=== PATIENT | male | born 1930 | race Caucasian/White ===

== ENCOUNTER 2016-09-28 11:25 | Emergency (ER) | payer MEDICARE, BC ==
[~2016-09-28 11:25] MED LIST: ALLERGY RELIEF10 M1 PO; CHILDREN'S ASPI81 M1 PO; CONSTULOSE10 GM/151 PO; CYCLOBENZAPRINE10 MG PO; DAPSONE 25MG TA25 MG PO; DAPSONE25 M1 PO; DILANTIN 50MG C50 MG PO; DIPHENHYDRAMINE25 MG PO; FINASTERIDE5 MG PO; GOOD NEIGHBOR500 M2 PO; GOOD SENSE ASPI81 M1 PO; HCTZ/LISINOPRIL1 TAB PO; IBUPROFEN400 MG PO; NATURE S BLEND PO; OMEPRAZOLE DR20 MG PO; OMEPRAZOLE20 MG PO; PROSCAR PO; SAW PALMETTO E160 M1 PO; SLO-NIACIN250 MG PO; ZESTRIL 5MG5 MG PO; ZOCOR 10MG10 MG PO; ZOCOR20 M1 PO
[2016-09-28] MEDS ORDERED: NORCO 325 MG-51 TA1 PO (14:20)
[2016-09-28] MEDS ORDERED: VALIUM5 M1 PO (14:20)
[2016-09-28 14:25] VITALS: BP 141/74
[2016-09-28] MEDS ORDERED: ACID REDUCER 1150 MG PO (14:41)
[2016-09-28] MEDS ORDERED: LISINOPRIL10 MG PO (14:47)
[2016-09-28] MEDS ORDERED: FOLIC ACID1 MG PO (14:47)
[2016-09-28] MEDS ORDERED: SEN-O-TABS8.6 MG PO (14:48)
[2016-09-28] MEDS ORDERED: FLOMAX 0.40.4 MG/CAP PO (14:49)
[2016-09-28] MEDS ORDERED: ACETAMINOPHEN1 EACH PO (14:49)
== END 2016-09-28 14:35 | disposition home or self-care (01) ==
LOC: ED 11:25
DX: S20.222A Contusion of left back wall of thorax, initial encounter (principal); S20.221A Contusion of right back wall of thorax, initial encounter; S09.90XA Unspecified injury of head, initial encounter; M62.830 Muscle spasm of back; F41.9 Anxiety disorder, unspecified; W01.198A Fall on same level from slipping, tripping and stumbling with subsequent striking against other object, initial encounter; Z91.81 History of falling; Y92.009 Unspecified place in unspecified non-institutional (private) residence as the place of occurrence of the external cause; I10 Essential (primary) hypertension; E78.5 Hyperlipidemia, unspecified; I69.193 Ataxia following nontraumatic intracerebral hemorrhage; F03.90 Unspecified dementia, unspecified severity, without behavioral disturbance, psychotic disturbance, mood disturbance, and anxiety
CPT/HCPCS: J2405; J3010; Q9967

== ENCOUNTER 2017-05-08 12:53 | Emergency (ER) | payer MEDICARE, BC ==
[~2017-05-08 12:53] MED LIST changes: +ACETAMINOPHEN1 EACH PO; +ACID REDUCER 1150 MG PO; +FLOMAX 0.40.4 MG/CAP PO; +FOLIC ACID1 MG PO; +LISINOPRIL10 MG PO; +NORCO 325 MG-51 TA1 PO; +SEN-O-TABS8.6 MG PO; +VALIUM5 M1 PO
[2017-05-08] MEDS ORDERED: JEVITY PO (13:10)
[2017-05-08 14:32] LABS: URINE APPEARANCE CLOUDY; URINE COLOR YELLOW
[2017-05-08 14:33] LABS: PH-URINE 6.5 (5.0 - 8.0); URINE BILIRUBIN NEGATIVE (NEGATIVE); URINE BLOOD TRACE (NEGATIVE); URINE GLUCOSE NEGATIVE (NEGATIVE); URINE KETONE NEGATIVE (NEGATIVE); URINE LEUKOCYTE ESTERASE 2+ (NEGATIVE); URINE NITRATE NEGATIVE (NEGATIVE); URINE PROTEIN(semi-quant) 2+ mg/dL (NEGATIVE); URINE UROBILINOGEN NORMAL (NORMAL); URINE WBC >50 /hpf (0-3)
[2017-05-08 14:46] LABS: HEMATOCRIT 46.3 % (42.0-52.0); HEMOGLOBIN 14.8 g/dL (13.5-18.0); MEAN CELL VOLUME 97 fl (78-100); MEAN CORPUSCULAR HEMOGLOBIN 31 pg (27-31); MEAN CORPUSCULAR HGB CONC 32 g/dL (33-37); MEAN PLATELET VOLUME 10.6 fl (7.4-10.4); PLATELET COUNT 340 K/mm3 (130-400); RED BLOOD COUNT 4.79 M/mm3 (4.20-5.60); RED CELL DISTRIBUTION WIDTH 13.8 % (11.5-14.5); WHITE BLOOD COUNT 8.7 K/mm3 (4.8-10.8)
[2017-05-08 14:56] LABS: ALBUMIN 3.9 g/dL (3.5-5.0); BUN/CREATININE RATIO 17.3 (6.0-26.0); CALCIUM 9.2 mg/dL (8.4-10.2); TOTAL BILIRUBIN 0.7 mg/dL (0.2-1.3); TOTAL PROTEIN 7.7 g/dL (6.3-8.2)
[2017-05-08 15:22] LABS: LYMPHOCYTE 30 % (20-51); MONOCYTE 12 % (3-10); NEUTROPHILS 56 % (42-75)
[2017-05-08] MEDS ORDERED: CEFDINIR300 MG PO (15:54)
[2017-05-08 16:20] VITALS: BP 126/83
== END 2017-05-08 16:20 | disposition home or self-care (01) ==
LOC: ED 12:53
PROVIDERS: Physician Assistant
DX: N39.0 Urinary tract infection, site not specified (principal); I10 Essential (primary) hypertension; K21.9 Gastro-esophageal reflux disease without esophagitis; F03.90 Unspecified dementia, unspecified severity, without behavioral disturbance, psychotic disturbance, mood disturbance, and anxiety; I69.893 Ataxia following other cerebrovascular disease; R53.1 Weakness
CPT/HCPCS: J0696

== ENCOUNTER → 2017-05-16 | Outpatient (CLI) | payer MEDICARE, BC ==
[2017-05-08 16:20] VITALS: BP 126/83
[~2017-05-16] MED LIST changes: +CEFDINIR300 MG PO; +JEVITY PO
[2017-05-16 11:14] LABS: URINE APPEARANCE CLEAR; URINE BILIRUBIN NEGATIVE (NEGATIVE); URINE BLOOD NEGATIVE (NEGATIVE); URINE COLOR YELLOW; URINE GLUCOSE NEGATIVE (NEGATIVE); URINE KETONE NEGATIVE (NEGATIVE); URINE LEUKOCYTE ESTERASE NEGATIVE (NEGATIVE); URINE NITRATE NEGATIVE (NEGATIVE); URINE PROTEIN(semi-quant) NEGATIVE (NEGATIVE); URINE UROBILINOGEN NORMAL (NORMAL); URINE WBC 0-1 /hpf (0-3)
== END ==
LOC: LAB 10:30
PROVIDERS: Internal Medicine
DX: N30.00 Acute cystitis without hematuria (principal)

== ENCOUNTER 2017-06-03 11:18 | Emergency (ER) | payer MEDICARE, BC ==
[~2017-06-03] VITALS: Wt 93.0 kg
[2017-06-03 12:03] LABS: HEMATOCRIT 42.2 % (42.0-52.0); HEMOGLOBIN 13.7 g/dL (13.5-18.0); MEAN CELL VOLUME 95 fl (78-100); MEAN CORPUSCULAR HEMOGLOBIN 31 pg (27-31); MEAN CORPUSCULAR HGB CONC 33 g/dL (33-37); MEAN PLATELET VOLUME 10.3 fl (7.4-10.4); PLATELET COUNT 218 K/mm3 (130-400); RED BLOOD COUNT 4.44 M/mm3 (4.20-5.60); RED CELL DISTRIBUTION WIDTH 13.3 % (11.5-14.5)
[2017-06-03 12:14] LABS: ALBUMIN 3.9 g/dL (3.5-5.0); BUN/CREATININE RATIO 18.1 (6.0-26.0); CALCIUM 8.8 mg/dL (8.4-10.2); POTASSIUM 3.9 mmol/L (3.6-5.0); TOTAL BILIRUBIN 0.7 mg/dL (0.2-1.3); TOTAL PROTEIN 7.5 g/dL (6.3-8.2)
[2017-06-03 12:30] LABS: PH-URINE 7.5 (5.0 - 8.0); URINE APPEARANCE CLEAR; URINE BILIRUBIN NEGATIVE (NEGATIVE); URINE BLOOD NEGATIVE (NEGATIVE); URINE COLOR YELLOW; URINE GLUCOSE NEGATIVE (NEGATIVE); URINE KETONE NEGATIVE (NEGATIVE); URINE LEUKOCYTE ESTERASE NEGATIVE (NEGATIVE); URINE NITRATE NEGATIVE (NEGATIVE); URINE PROTEIN(semi-quant) NEGATIVE (NEGATIVE); URINE UROBILINOGEN NORMAL (NORMAL); URINE WBC 0-1 /hpf (0-3)
[2017-06-03 12:30] LABS: LYMPHOCYTE 8 % (20-51); MONOCYTE 5 % (3-10); NEUTROPHILS 84 % (42-75)
[2017-06-03] MEDS ORDERED: ZOFRAN ODT4 MG PO (14:01)
[2017-06-03 14:44] VITALS: BP 147/56
== END 2017-06-03 14:26 | disposition home or self-care (01) ==
LOC: ED 11:18
PROVIDERS: Nurse Practitioner Primary Care
DX: A08.4 Viral intestinal infection, unspecified (principal)
CPT/HCPCS: A4354; Q9967

== ENCOUNTER → 2017-06-21 | Outpatient (CLI) | payer MEDICARE, BC ==
[2017-06-03 14:44] VITALS: BP 147/56
[~2017-06-21] MED LIST changes: +ZOFRAN ODT4 MG PO
== END ==
LOC: RAD 09:41
DX: N28.1 Cyst of kidney, acquired (principal)

== ENCOUNTER → 2017-08-13 | Outpatient (CLI) | payer MEDICARE, BC ==
[2017-08-13 09:11] LABS: HEMATOCRIT 44.6 % (42.0-52.0); HEMOGLOBIN 14.4 g/dL (13.5-18.0); MEAN CELL VOLUME 95 fl (78-100); MEAN CORPUSCULAR HEMOGLOBIN 31 pg (27-31); MEAN CORPUSCULAR HGB CONC 32 g/dL (33-37); MEAN PLATELET VOLUME 9.9 fl (7.4-10.4); PLATELET COUNT 268 K/mm3 (130-400); RED BLOOD COUNT 4.68 M/mm3 (4.20-5.60); RED CELL DISTRIBUTION WIDTH 13.4 % (11.5-14.5); WHITE BLOOD COUNT 5.8 K/mm3 (4.8-10.8)
[2017-08-13 09:31] LABS: BUN/CREATININE RATIO 20.7 (6.0-26.0); CALCIUM 8.9 mg/dL (8.4-10.2); TOTAL BILIRUBIN 0.7 mg/dL (0.2-1.3)
[2017-08-13 10:04] LABS: LYMPHOCYTE 13 % (20-51); MONOCYTE 12 % (3-10); NEUTROPHILS 66 % (42-75)
[2017-08-13 10:17] LABS: ERYTHROCYTE SEDIMENTATION RATE 9 mm/hr (0-20)
== END ==
LOC: LAB 08:55
PROVIDERS: Internal Medicine
DX: G93.41 Metabolic encephalopathy (principal); F03.90 Unspecified dementia, unspecified severity, without behavioral disturbance, psychotic disturbance, mood disturbance, and anxiety; J20.8 Acute bronchitis due to other specified organisms

== ENCOUNTER 2017-08-20 12:59 | Emergency (ER) | payer MEDICARE, BC ==
[2017-08-20 13:44] LABS: HEMATOCRIT 43.2 % (42.0-52.0); HEMOGLOBIN 14.1 g/dL (13.5-18.0); MEAN CELL VOLUME 94 fl (78-100); MEAN CORPUSCULAR HEMOGLOBIN 31 pg (27-31); MEAN CORPUSCULAR HGB CONC 33 g/dL (33-37); MEAN PLATELET VOLUME 10.2 fl (7.4-10.4); PLATELET COUNT 254 K/mm3 (130-400); RED BLOOD COUNT 4.59 M/mm3 (4.20-5.60); RED CELL DISTRIBUTION WIDTH 13.2 % (11.5-14.5); WHITE BLOOD COUNT 6.4 K/mm3 (4.8-10.8)
[2017-08-20 13:59] LABS: ALBUMIN 3.9 g/dL (3.5-5.0); BUN/CREATININE RATIO 16.6 (6.0-26.0); CALCIUM 8.8 mg/dL (8.4-10.2); POTASSIUM 3.9 mmol/L (3.6-5.0); TOTAL BILIRUBIN 0.9 mg/dL (0.2-1.3); TOTAL PROTEIN 7.6 g/dL (6.3-8.2)
[2017-08-20 14:00] LABS: LYMPHOCYTE 36 % (20-51); MONOCYTE 11 % (3-10); NEUTROPHILS 48 % (42-75)
[2017-08-20 14:03] LABS: TROPONIN-I 0.03 ng/mL (0.00-0.06)
[2017-08-20 14:06] LABS: CKMB ISOENZYME 1.4 ng/mL (0.6-3.5); D-DIMER 1.4 mg/L FEU (0.15-0.50)
[2017-08-20 14:47] LABS: URINE APPEARANCE CLEAR; URINE BILIRUBIN NEGATIVE (NEGATIVE); URINE BLOOD TRACE (NEGATIVE); URINE COLOR YELLOW; URINE GLUCOSE NEGATIVE (NEGATIVE); URINE KETONE NEGATIVE (NEGATIVE); URINE LEUKOCYTE ESTERASE 2+ (NEGATIVE); URINE NITRATE NEGATIVE (NEGATIVE); URINE PROTEIN(semi-quant) TRACE mg/dL (NEGATIVE); URINE UROBILINOGEN NORMAL (NORMAL)
[2017-08-20 16:33] VITALS: BP 122/78
== END 2017-08-20 16:36 | disposition other institution (70) ==
LOC: ED 12:59
PROVIDERS: Nurse Practitioner Primary Care
DX: I10 Essential (primary) hypertension (principal); F03.91 Unspecified dementia, unspecified severity, with behavioral disturbance; F05 Delirium due to known physiological condition; Z86.73 Personal history of transient ischemic attack (TIA), and cerebral infarction without residual deficits; E78.5 Hyperlipidemia, unspecified; R06.00 Dyspnea, unspecified; R09.02 Hypoxemia; Z79.899 Other long term (current) drug therapy
CPT/HCPCS: Q9967

== ENCOUNTER 2017-08-20 16:16 | Observation (INO) | payer MEDICARE, BC ==
[~2017-08-20] VITALS: Ht 177.8 cm; Wt 90.3 kg
[2017-08-20 17:20] VITALS: BP 135/101
[2017-08-20 17:26] VITALS: BP 135/101
[2017-08-20 18:56] VITALS: BP 116/62
[2017-08-20 23:35] VITALS: BP 149/79
[2017-08-21 03:33] VITALS: BP 150/86
[2017-08-21 06:23] VITALS: BP 141/84
[2017-08-21 11:34] VITALS: BP 96/57
[2017-08-21 15:23] VITALS: BP 107/55
[2017-08-21 18:46] VITALS: BP 104/72
== END 2017-08-21 18:45 | disposition home or self-care (01) ==
LOC: MED/SURG 16:16
PROVIDERS: ADMIT Nurse Practitioner Primary Care
DX: G93.40 Encephalopathy, unspecified (principal); R09.02 Hypoxemia; J67.0 Farmer's lung; G30.9 Alzheimer's disease, unspecified; F02.81 Dementia in other diseases classified elsewhere, unspecified severity, with behavioral disturbance; I10 Essential (primary) hypertension; E78.5 Hyperlipidemia, unspecified; L13.0 Dermatitis herpetiformis; N40.0 Benign prostatic hyperplasia without lower urinary tract symptoms; Z86.73 Personal history of transient ischemic attack (TIA), and cerebral infarction without residual deficits; K21.9 Gastro-esophageal reflux disease without esophagitis; Z99.81 Dependence on supplemental oxygen
CPT/HCPCS: G0378; G0379

== ENCOUNTER → 2017-08-24 | Outpatient (CLI) | payer MEDICARE, BC ==
[2017-08-21 18:46] VITALS: BP 104/72
== END ==
LOC: CARDREHAB 08-22 15:17
DX: G47.33 Obstructive sleep apnea (adult) (pediatric) (principal); R06.83 Snoring; R09.02 Hypoxemia; E66.9 Obesity, unspecified; Z68.33 Body mass index [BMI] 33.0-33.9, adult
CPT/HCPCS: G0399

== ENCOUNTER → 2018-01-24 | Outpatient (CLI) | payer MEDICARE, BC ==
[2018-01-24 15:35] LABS: HEMATOCRIT 40.5 % (42.0-52.0); HEMOGLOBIN 13.2 g/dL (13.5-18.0); MEAN CELL VOLUME 97 fl (78-100); MEAN CORPUSCULAR HEMOGLOBIN 32 pg (27-31); MEAN CORPUSCULAR HGB CONC 33 g/dL (33-37); MEAN PLATELET VOLUME 10.5 fl (7.4-10.4); PLATELET COUNT 259 K/mm3 (130-400); RED BLOOD COUNT 4.19 M/mm3 (4.20-5.60); RED CELL DISTRIBUTION WIDTH 12.4 % (11.5-14.5); WHITE BLOOD COUNT 7.6 K/mm3 (4.8-10.8)
[2018-01-24 16:38] LABS: ALBUMIN 4.3 g/dL (3.5-5.0); CALCIUM 9.4 mg/dL (8.4-10.2); POTASSIUM 4.6 mmol/L (3.6-5.0); TOTAL BILIRUBIN 0.7 mg/dL (0.2-1.3); TOTAL PROTEIN 7.3 g/dL (6.3-8.2)
[2018-01-24 17:27] LABS: LYMPHOCYTE 28 % (20-51); MONOCYTE 13 % (3-10); NEUTROPHILS 55 % (42-75)
== END ==
LOC: LAB 14:55
PROVIDERS: Internal Medicine
DX: I10 Essential (primary) hypertension (principal)

== ENCOUNTER → 2018-10-02 | Outpatient (CLI) | payer MEDICARE, BC ==
[~2018-10-02] VITALS: Ht 177.8 cm; Wt 90.3 kg
[2018-10-02 11:00] VITALS: BP 95/54
[2018-10-02 12:00] LABS: PH-URINE 5.5 (5.0 - 8.0); URINE APPEARANCE CLEAR; URINE BILIRUBIN NEGATIVE (NEGATIVE); URINE BLOOD NEGATIVE (NEGATIVE); URINE COLOR YELLOW; URINE GLUCOSE NEGATIVE (NEGATIVE); URINE KETONE NEGATIVE (NEGATIVE); URINE LEUKOCYTE ESTERASE NEGATIVE (NEGATIVE); URINE NITRATE NEGATIVE (NEGATIVE); URINE PROTEIN(semi-quant) NEGATIVE (NEGATIVE); URINE UROBILINOGEN NORMAL (NORMAL); URINE WBC 0-1 /hpf (0-3)
== END ==
LOC: AMSURD 09:46 → LAB 09:46
PROVIDERS: Physician Assistant
DX: N39.0 Urinary tract infection, site not specified (principal)

== ENCOUNTER → 2018-10-28 | Outpatient (CLI) | payer MEDICARE, BC ==
[2018-10-02 11:00] VITALS: BP 95/54
== END ==
LOC: RAD 10:08
DX: J90 Pleural effusion, not elsewhere classified (principal); M19.012 Primary osteoarthritis, left shoulder; W19.XXXA Unspecified fall, initial encounter

== ENCOUNTER → 2018-11-06 | Outpatient (CLI) | payer MEDICARE, BC ==
[2018-10-02 11:00] VITALS: BP 95/54
== END ==
LOC: RAD 08:22
DX: G31.9 Degenerative disease of nervous system, unspecified (principal); F03.90 Unspecified dementia, unspecified severity, without behavioral disturbance, psychotic disturbance, mood disturbance, and anxiety; R56.9 Unspecified convulsions

== ENCOUNTER 2019-11-05 16:19 | Observation (INO) | payer MEDICARE, BC ==
[~2019-11-05] VITALS: Ht 175.3 cm; Wt 87.1 kg
[2019-11-05 17:10] LABS: MEAN CELL VOLUME 93 fl (78-100); MEAN CORPUSCULAR HEMOGLOBIN 30 pg (27-31); MEAN CORPUSCULAR HGB CONC 33 g/dL (33-37); PLATELET COUNT 261 K/mm3 (130-400); RED BLOOD COUNT 4.97 M/mm3 (4.20-5.60); RED CELL DISTRIBUTION WIDTH 13.3 % (11.5-14.5); WHITE BLOOD COUNT 6.6 K/mm3 (4.8-10.8)
[2019-11-05 17:17] LABS: ALBUMIN 3.8 g/dL (3.4-4.8)
[2019-11-05 17:18] LABS: POTASSIUM 4.1 mmol/L (3.5-5.1)
[2019-11-05 17:20] LABS: TOTAL PROTEIN 7.1 g/dL (6.2-8.1)
[2019-11-05 17:21] LABS: LYMPHOCYTE 17 % (20-51); MONOCYTE 15 % (3-10); NEUTROPHILS 64 % (42-75)
[2019-11-05 17:22] LABS: TOTAL BILIRUBIN 0.6 mg/dL (0.2-1.2)
[2019-11-05 17:55] LABS: URINE WBC 0 /hpf (0-3)
[2019-11-05 18:02] LABS: URINE APPEARANCE CLEAR; URINE BILIRUBIN NEGATIVE (NEGATIVE); URINE BLOOD TRACE (NEGATIVE); URINE COLOR YELLOW; URINE GLUCOSE NEGATIVE (NEGATIVE); URINE KETONE NEGATIVE (NEGATIVE); URINE LEUKOCYTE ESTERASE NEGATIVE (NEGATIVE); URINE NITRATE NEGATIVE (NEGATIVE); URINE PROTEIN(semi-quant) TRACE mg/dL (NEGATIVE); URINE UROBILINOGEN NORMAL (NORMAL)
[2019-11-05] MEDS ORDERED: ARICEPT10 M1 PO (18:05)
[2019-11-05] MEDS ORDERED: QUETIAPINE FUMA25 M3 PO (18:06)
[2019-11-05] MEDS ORDERED: SIMVASTATIN20 M1 PO (18:07)
[2019-11-05] MEDS ORDERED: CONSTULOSE10 GM/151 PO (18:08)
[2019-11-05 18:23] VITALS: BP 113/94
[2019-11-05 22:29] VITALS: BP 134/73
[2019-11-06 01:53] VITALS: BP 134/73; BP 152/83
[2019-11-06 06:09] VITALS: BP 178/71
[2019-11-06 10:18] VITALS: BP 135/58
[2019-11-06 14:42] VITALS: BP 149/77
[2019-11-06 18:16] VITALS: BP 136/84
[2019-11-06 21:37] VITALS: BP 141/78
[2019-11-07 02:00] VITALS: BP 138/69
[2019-11-07 06:13] VITALS: BP 177/94
[2019-11-07] MEDS ORDERED: QUETIAPINE FUMA25 M3 PO (08:06)
[2019-11-07 09:43] VITALS: BP 177/94
[2019-11-07 09:49] VITALS: BP 126/64
== END 2019-11-07 10:38 ==
LOC: ED 16:19 → MED/SURG 17:09
PROVIDERS: ADMIT Physician Assistant
DX: G30.9 Alzheimer's disease, unspecified (principal); F02.80 Dementia in other diseases classified elsewhere, unspecified severity, without behavioral disturbance, psychotic disturbance, mood disturbance, and anxiety; Z86.73 Personal history of transient ischemic attack (TIA), and cerebral infarction without residual deficits; K21.9 Gastro-esophageal reflux disease without esophagitis; I10 Essential (primary) hypertension; M19.90 Unspecified osteoarthritis, unspecified site; E78.5 Hyperlipidemia, unspecified; N40.0 Benign prostatic hyperplasia without lower urinary tract symptoms; Z96.653 Presence of artificial knee joint, bilateral
CPT/HCPCS: G0378